=== PATIENT | male | born 2000 | race Caucasian/White ===

== ENCOUNTER 2023-09-15 22:53 | Emergency (ER) | payer SELFPAY ==
--- NOTE | ~2023-09-15 | CT_ITS ---
Non-contrast CT scan of the Abdomen and Pelvis Clinical indication: Hematuria Technique: 2.5 mm axial scans were obtained through the abdomen and pelvis without intravenous or or al contrast. Dose reduction technique was used on this scan by utilizing automated exposure control a nd iterative reconstruction technique. The dose-length product (DLP) was 1902.29 mGy-cm. Findings: Images through the lung bases reveal no abnormalities. There is no evidence of renal or ureteral calculi. The kidneys and the ureters are nondilated. The liver, pancreas, gallbladder, and adrenals appear normal. 6.4 cm probable splenic cyst present. T here is no aortic aneurysm. There is no evidence of bowel obstruction. Images through the pelvis were performed. There is no evidence of ascites or lymphadenopathy. Urinary bladder unremarkable. No pelvic mass seen. Impression: No etiology for hematuria identified. No abnormality of the system identified. 6.4 cm probable splenic cyst. Reviewed, dictated and finalized at [facility]. Impression: No etiology for hematuria identified. No abnormality of the system identifie d. 6.4 cm probable splenic cyst.
[2023-09-15 22:56] VITALS: BP 151/73; PULSE 119; RESP 14; TEMP 35.5; O2SAT 95
[2023-09-16 01:58] LABS: Appearance Urine Clear (Clear); Bilirubin Urine Negative (Negative); Blood Urine Negative (Negative); Color Urine Yellow (Yellow); Glucose Urine UA Negative (Negative); Ketones Urine Negative (Negative); Leukocyte Esterase Ur Negative LEU/UL (Negative); Nitrate Urine Negative (Negative); Protein Urine Negative (Negative); Specific Grav Ur 1.014 (1.001-1.035); pH Urine 6.5 (5.0-9.0)
[2023-09-16 02:07] LABS: Add Urine Microscopic? NO
--- NOTE | 2023-09-16 02:22 | ED.MALEGU ---
HPI - Male Genitourinary General Chief complaint: Urogenital-Male Stated complaint: blood in urine Time Seen by Provider: 09/16/23 00:15 History of Present Illness HPI Narrative: 22-year-old male presents to the emergency department with hematuria for 1 episode that occurred prior to arrival. Patient states he noticed bright red blood in his urine became concerned. He is also reporting diffuse lower abdominal pain. Denies flank pain. Denies history of kidney stones. Denies dysuria, urinary frequency urgency, fever, nausea or vomiting. Denies penile discharge or concern for STDs Review of Systems Review of Systems: All systems reviewed & are unremarkable except as noted in HPI and below Exam Narrative: GENERAL: Well-appearing, well-nourished, and in no acute distress. HEAD: Normocephalic, atraumatic. EYES: PERRLA and EOMI. ENT: Nares clear, no rhinorrhea or epistaxis. Mucous membranes moist. NECK: Supple. CHEST: Clear to auscultation. No respiratory distress. HEART: Regular rate and rhythm. No murmur heard. Normal peripheral pulses. ABDOMEN: Normal active bowel sounds. Morbidly obese . Abdomen soft with lower abdominal tenderness. No rebound guarding or rigidity. No CVA tenderness. EXTREMITIES: Normal range of motion. No edema. SKIN: Warm, dry, no rash. NEURO: No focal deficits. Alert and oriented x3 Course Vital Signs Vital signs: Vital Signs Temperature 96 F L 09/15/23 22:56 Pulse Rate 119 H 09/15/23 22:56 Respiratory Rate 14 09/15/23 22:56 Blood Pressure 151/73 H 09/15/23 22:56 Pulse Oximetry 95 09/15/23 22:56 Oxygen Delivery Room Air 09/15/23 22:56 Temperature 96 F L 09/15/23 22:56 Pulse Rate 119 H 09/15/23 22:56 Respiratory Rate 14 09/15/23 22:56 Blood Pressure 151/73 H 09/15/23 22:56 Pulse Oximetry 95 09/15/23 22:56 Oxygen Delivery Room Air 09/15/23 22:56 MDM - Male Genitourinary MDM Narrative Medical decision making narrative: 22-year-old male presents emergency department for episode of hematuria lower abdominal pain today. Triage vital significant for tachycardia 119. He is afebrile and nontoxic appearing. Exam is significant for the above. UA is unrevealing. No pyuria, no hematuria. I discussed these findings with the patient. On re-evaluation he is sleeping. He states he still having abdominal pain and would like further workup including a CT scan. CT abdomen pelvis shows a 5.3 x 4.7 cm low-attenuation splenic lesion which may reflect a splenic angioma versus less likely a splenic cyst with suggestions for further evaluation with PET, abdominal MRI or biopsy. There is no hydronephrosis or calculi. There is no acute findings within the abdomen or pelvis. Patient refused blood draw. I discussed the CT and UA findings with him. Advised him to follow-up closely with his PCP. Strict ED return precautions discussed. He is agreeable with the plan and verbalized understanding. Discharged in stable condition. Lab Data Labs: Lab Results 09/16/23 Range/Units 01:51 Urine Color Yellow (Yellow) Urine Appearance Clear (Clear) Urine pH 6.5 (5.0-9.0) Ur Specific [place] 1.014 (1.001-1.035) Urine Protein Negative (Negative) mg/dL Urine Glucose (UA) Negative (Negative) mg/dL Urine Ketones Negative (Negative) mg/dL Ur Blood (Man) Negative (Negative) Urine Nitrate Negative (Negative) Urine Bilirubin Negative (Negative) Urine Urobilinogen 1.0 (<2.0) mg/dL Leukocyte Esterase Rfl Negative (Negative) WILLIAM/UL Discharge Plan Discharge Clinical Impression: Lesion of spleen Abdominal pain Qualifiers: Abdominal location: lower abdomen, unspecified Qualified Code(s): R10.30 - Lower abdominal pain, unspecified Patient Disposition: Home, Self-Care Condition: Stable Instructions: Antibiotic Form, Abdominal Pain (ED) Additional Instructions: Your evaluated in the emergency department for a
[2023-09-16 03:10] VITALS: BP 158/82; PULSE 98; RESP 15; O2SAT 96
== END 2023-09-16 03:59 | disposition home or self-care (01) ==
PROVIDERS: Emergency Provider Physician Assistant; PCP Emergency Medicine
DX: D73.89 Other diseases of spleen (principal); R10.30 Lower abdominal pain, unspecified
CPT/HCPCS: 74176; 81003; 99284